=== PATIENT | female | born 1960 | race Caucasian/White ===

== ENCOUNTER 2020-10-18 07:57 | Outpatient (CLI) | payer BC | END 2020-10-18 07:58 | disposition home or self-care (01) | LOC: BICULT 07:57 | PROVIDERS: ATTEND Internal Medicine Gastroenterology | DX: R22.2 Localized swelling, mass and lump, trunk (principal); Z80.0 Family history of malignant neoplasm of digestive organs | CPT/HCPCS: 76705 ==